=== PATIENT | female | born 1965 | race Caucasian/White ===

== ENCOUNTER 2017-03-17 23:40 | Emergency (ER) | payer OTHER ==
[2017-03-18 02:03] LABS: BASOPHIL 0.5 % (0-2); HCT 38.6 % (37.0-47.0); HGB 13.7 g/dl (12.5-16.0); LYMPHOCYTE 36.1 % (15-48); MCHC 35.5 g/dL (32.0-36.0); MCV 84.6 fL (78.0-100.0); MONOCYTE 6.6 % (0-12); MPV 11.4 fL (6.0-9.5); NEUTROPHIL 53.8 % (41-80); PLT 196 K/uL (150-400); RBC 4.56 M/uL (4.20-5.40); RDW 12.4 % (11.5-14.0); WBC 7.7 K/uL (4.0-10.5)
[2017-03-18 02:22] LABS: CREATININE 0.6 mg/dL (0.5-1.0); POTASSIUM 3.8 mmol/L (3.5-5.1)
== END 2017-03-18 04:17 | disposition home or self-care (01) ==
LOC: FER 23:40
PROVIDERS: Emergency Medicine
DX: K11.20 Sialoadenitis, unspecified (principal)
CPT/HCPCS: 36415; 70487; 80048; 85025; Q9967

== ENCOUNTER → 2022-01-04 | Day surgery (SDC) | payer OTHER ==
[~2022-01-04] VITALS: Ht 134.6 cm; Wt 64.4 kg
[~2022-01-04] MED LIST: LIPITOR20 MG PO; MOBIC7.5 MG PO; NEURONTIN400 MG PO; OMEPRAZOLE40 MG PO; ZANTAC150 MG PO
--- NOTE | 2022-01-04 08:44 | NUR ---
INTERPERTOR PATRICK #[id number] USED TO REVIEW HX AND EXPAIN PROCEDURE AND DISCHARGE INSTRUCTIONS
== END | disposition home or self-care (01) ==
LOC: FAS 07:45
DX: K31.9 Disease of stomach and duodenum, unspecified (principal); K21.9 Gastro-esophageal reflux disease without esophagitis; I10 Essential (primary) hypertension; M19.90 Unspecified osteoarthritis, unspecified site; Z85.038 Personal history of other malignant neoplasm of large intestine; Z90.49 Acquired absence of other specified parts of digestive tract; Z98.0 Intestinal bypass and anastomosis status
CPT/HCPCS: J2250; J2704; J7120